=== PATIENT | female | born 1940 | race Caucasian/White ===

== ENCOUNTER 2017-10-21 18:56 | Emergency (ER) | payer MEDICARE, MEDICAID, OTHER | END 2017-10-21 20:04 | disposition home or self-care (01) | LOC: E/R 18:56 | DX: L76.22 Postprocedural hemorrhage of skin and subcutaneous tissue following other procedure (principal) | CPT/HCPCS: 99281 ==

== ENCOUNTER 2017-10-21 23:25 | Emergency (ER) | payer MEDICARE, MEDICAID | END 2017-10-22 01:06 | disposition left against medical advice (07) | LOC: E/R 23:25 | DX: Z48.01 Encounter for change or removal of surgical wound dressing (principal); E11.9 Type 2 diabetes mellitus without complications; I10 Essential (primary) hypertension | CPT/HCPCS: 99281 ==

== ENCOUNTER 2017-11-02 13:59 | Emergency (ER) | payer MEDICARE, OTHER, MEDICAID | END 2017-11-02 14:55 | disposition home or self-care (01) | LOC: E/R 13:59 | DX: L29.9 Pruritus, unspecified (principal); L98.499 Non-pressure chronic ulcer of skin of other sites with unspecified severity; I10 Essential (primary) hypertension; E11.9 Type 2 diabetes mellitus without complications; G30.9 Alzheimer's disease, unspecified | CPT/HCPCS: 99283 ==

== ENCOUNTER 2017-11-05 13:17 | Emergency (ER) | payer MEDICARE, OTHER | END 2017-11-06 00:48 | disposition home or self-care (01) | LOC: E/R 11-06 00:48 | DX: L29.9 Pruritus, unspecified (principal); I10 Essential (primary) hypertension; E11.9 Type 2 diabetes mellitus without complications; G30.9 Alzheimer's disease, unspecified | CPT/HCPCS: 99283 ==

== ENCOUNTER 2017-11-12 06:18 | Emergency (ER) | payer MEDICARE, OTHER | END 2017-11-12 08:11 | disposition home or self-care (01) | LOC: E/R 06:18 | DX: S01.80XA Unspecified open wound of other part of head, initial encounter (principal); I10 Essential (primary) hypertension; E11.9 Type 2 diabetes mellitus without complications; G30.9 Alzheimer's disease, unspecified; X58.XXXA Exposure to other specified factors, initial encounter; Y92.9 Unspecified place or not applicable | CPT/HCPCS: 12002; 99283-25 ==